=== PATIENT | female | born 1965 | race Caucasian/White ===

== ENCOUNTER 2025-04-22 11:35 | Emergency (ER) | payer OTHER, BC ==
--- OUTSIDE RECORDS SUMMARY | 2025-04-22 11:38 | XMS REPORT | Continuity of Care Document ---
Author Name Unknown Address [address] [place] [address] [place] [id number] Care Team Providers Care Director Digital Name Role Phone JUANIS PIERCE Attending Clinician Unavailable Encounters Start Date/Time End Date/Time Encounter Type Admission Type Attending Clinicians Care Facility Care Department Encounter ID Source 2024-03-18 14:42:00 2024-03-18 14:42:00 Outpatient JUANIS JONES [facility] [id number] [facility]
[2025-04-22 12:23] LABS: Absolute Lymphocytes (CBC) 1.4 K/uL (0.7-4.9); Hematocrit 40.8 % (36.0-45.0); Hemoglobin 14.1 g/dL (12.0-15.0); MCH 31.5 pg (27.0-35.0); MCHC 34.6 g/dL (32.0-36.0); MCV 90.9 fL (80-100); MPV 7.4 fL (7.6-11.3); Nucleated RBC Absolute Count 0.0 (0-0); Nucleated Red Blood Cells % 0.0 % (0-0); RBC Red Blood Cell Count 4.48 M/uL (3.86-4.86); White Blood Count 5.40 thou/uL (4.3-10.9)
[2025-04-22] MEDS ORDERED: NA CHLORIDE 0.9% 1,000 ML ONE (12:29)
[2025-04-22] MEDS ORDERED: KETOROLAC 30 MG/ML INJ ONE (12:29)
[2025-04-22] MEDS ORDERED: ONDANSETRON 4 MG/2 ML VIAL ONE (12:29)
[2025-04-22 12:40] LABS: ALT/SGPT 27.0 U/L (13-56); AST/SGOT 16.0 U/L (15-37); Albumin 3.6 g/dL (3.4-5.0); Albumin/Globulin Ratio 0.9 (1.1-1.8); Alkaline Phosphatase 81.0 U/L (45-117); Anion Gap 8.3 mEq/L (5.0-15.0); BUN Blood Urea Nitrogen 18.0 mg/dL (7-18); Globulin 3.8 g/dL (2.3-3.5); Glucose Level 107.0 mg/dL (74-106); Lipase 60.0 U/L (13-75); Potassium 3.3 mEq/L (3.5-5.1)
--- NOTE | 2025-04-22 13:28 | RAD REPORT ---
EXAMINATION: Stone Protocol CLINICAL INDICATION: Abdominal pain TECHNIQUE: CT abdomen and pelvis was performed, without IV contrast, as per department protocol. Oral contrast not given. Axial, sagittal and coronal reconstructions were obtained. One or more of the following dose reduction techniques were used: Automated exposure control, adjustment of the mA and k V according to the patient size, and iterative reconstruction. Unless otherwise specified, incidental findings do not require dedicated imaging follow-up. COMPARISON: 2021 FINDINGS: The lack of intravenous and oral contrast limits the sensitivity of this exam for evaluation of solid visceral organs, vascular structures, and bowel Multiple right renal calculi. Moderate right hydronephrosis. Right ureter dilated. 7 mm calculus dist al right ureter. Tiny nonobstructing left renal calculus. Liver, spleen, pancreas and adrenals grossly normal No evidence of diverticulitis. Normal appendix. Small umbilical hernia. 5 cm left ovarian mass Hounsfield unit 37 unchanged from prior exam Moderate amount of stool within the colon IMPRESSION: 7 mm calculus distal right ureter results in moderate right hydronephrosis 5 mm left ovarian mass stable from 2021 likely benign. Nonemergent pelvic ultrasound may be helpful f or further evaluation.
--- NOTE | 2025-04-22 14:19 | ER ---
Nurse's Notes [facility] Name: Rocío Sandy Age: 60 yrs Sex: Female : 1965 Arrival Date: 04/22/2025 Time: 11:35 Bed 20 Private MD: Diagnosis: Calculus of kidney with calculus of ureter Presentation: 04/22 11:58 Chief complaint: Patient states: right flank pain that radiates to RLQ with n/v, me1 started last night. Pain is 8/10 "sharp and throbbing". Coronavirus screen: Vaccine status: Patient reports being unvaccinated. Ebola Screen: No symptoms or risks identified at this time. Initial Sepsis Screen: Does the patient meet any 2 criteria? No. Patient's initial sepsis screen is negative. Does the patient have a suspected source of infection? No. Patient's initial sepsis screen is negative. Risk Assessment: Do you want to hurt yourself or someone else? Patient reports no desire to harm self or others. Onset of symptoms was April 21, 2025 at 19:30. 11:58 Method Of Arrival: Ambulatory mi1 11:58 Acuity: JUANITO 3 me1 Historical: - Allergies: 12:00 PENICILLINS; me1 - PMHx: 12:00 Hypertensive disorder; kidney stones; me1 - PSHx: 12:00 section; me1 - Immunization history:: Adult Immunizations. - Infectious Disease History:: Denies. - Social history:: Smoking status: Patient denies any tobacco usage or history of. Screenin:08 [facility] ED Fall Risk Assessment (Adult) History of falling in the last 3 months, rg5 including since admission No falls in past 3 months (0 pts) Confusion or Disorientation No (0 pts) Intoxicated or Sedated No (0 pts) Impaired Gait No (0 pts) Mobility Assist Device Used No (0 pt) Altered Elimination No (0 pt) Score/Fall Risk Level 0 - 2 = Low Risk Oriented to surroundings, Maintained a safe environment. Abuse screen: Denies threats or abuse. Nutritional screening: No deficits noted. Tuberculosis screening: No symptoms or risk factors identified. Assessment: 13:08 General: Appears uncomfortable, Behavior is calm, cooperative, appropriate for age. rg5 Pain: Complains of pain in abdomen Pain currently is 8 out of 10 on a pain scale. Quality of pain is described as aching. Neuro: Level of Consciousness is awake, alert, obeys commands, Oriented to person, place, time. Cardiovascular: Patient's skin is warm and dry. Respiratory: Airway is patent Respiratory effort is even, unlabored. GI: Bowel sounds present in left lower quadrant Abd is soft. : No signs and/or symptoms were reported regarding the genitourinary system. EENT: No signs and/or symptoms were reported regarding the EENT system. Derm: Skin is intact, Skin is dry, Skin is normal. Musculoskeletal: Circulation, motion, and sensation intact. Range of motion: intact in all extremities. 14:00 Reassessment: Patient and/or family updated on plan of care and expected duration. Pain rg5 level reassessed. Patient is alert, oriented x 3, equal unlabored respirations, skin warm/dry/pink. Patient states symptoms have improved. Vital Signs: 11:58 BP 170 / 91; Pulse 75; Resp 18; Temp 98; Pulse Ox 99% ; Weight 83.91 kg; Height 5 ft. 4 me1 in. ; Pain 8/10; 13:07 BP 160 / 99; Pulse 77; Resp 18; Pulse Ox 97% ; rg5 14:00 BP 157 / 96; Pulse 85; Resp 18; Pulse Ox 96% ; rg5 11:58 Body Mass Index 31.75 (83.91 kg, 162.56 cm) me1 11:58 Pain Scale: Adult me1 ED Course: 11:51 Patient arrived in ED. cj3 11:51 Harrison Mcmillan FNP-C [facility]. dr5 11:51 Reji Patel MD is Attending Physician. dr5 11:58 Jay Fraser, YUKO is Primary Nurse. rg5 12:00 Triage completed. me1 12:00 Arm band placed on Patient placed in an exam room. me1 12:[address] In Process Unspecified. EDMS 13:08 Patient has correct armband on for positive identification. Bed in low position. Call rg5 light in reach. Side rails up X 1. Door closed. Noise minimized. Warm blanket given. 13:08 No provider procedures requiring assistance completed. Inserted saline lock: 20 gauge rg5 in left antecubital area, using aseptic technique. Blood collected. Flushed with 10 mL NS. 14:49 IV discontinued, bleeding controlled, No redness/swelling at site. Pressure dressing rg5 applied. Administered Medications: 12:55 Drug: Ondansetron IVP 4 mg IVP once; over 2 minutes Route: IVP; Site: left antecubital; rg5 13:30 Follow up: Response: No adverse reaction rg5 12:55 Drug: NS 0.9% IV 1000 ml IV at 1 bolus Per protocol; to be given as a bolus over 60 rg5 minutes Route: IV; Rate: 1 bolus; Site: right antecubital; 14:29 Follow up: IV Status: Completed infusion; IV Intake: 1000ml rg5 12:59 Drug: Ketorolac IVP 15 mg IVP once Route: IVP; Site: left antecubital; rg5 13:30 Follow up: Response: No adverse reaction rg5 14:29 Not Given (Patient Refused): morphineor iv 4 mg IVP once over 4 mins rg5 Medication: 13:08 VIS not applicable for this client. rg5 Intake: 14:29 IV: 1000ml; Total: 1000ml. rg5 Outcome: 14:19 Discharge ordered by . dr5 14:48 Discharged to home ambulatory, rg5 14:48 Condition: stable 14:48 Discharge instructions given to patient, Instructed on discharge instructions, Demonstrated understanding of instructions, Prescriptions given X 3, 14:49 Patient left the ED. rg5 Signatures: Dispatcher [employer] EDHilary Pride RN RN me1 Jay Fraser RN RN rg5 Harrison Mcmillan, PHOTOLITHOGRAPHIC STRIPPER-C PHOTOLITHOGRAPHIC STRIPPER-[facility]5 Charity Montoya 3
--- NOTE | 2025-04-22 14:19 | EDPHYS ---
Physician Documentation [facility] Name: Rocío Sandy Age: 60 yrs Sex: Female : 1965 Arrival Date: 04/22/2025 Time: 11:35 Bed 20 Private MD: JL Physician Reji Patel HPI: 04/22 12:16 This 60 yrs old Female presents to ER via Ambulatory with complaints of Flank dr5 Pain, Abdominal Pain. 12:16 The patient complains of pain in the right low back. Onset: The symptoms/episode dr5 began/occurred 1 week(s) ago. Patient is a 60-year-old female with history of hypertension and kidney stones coming in with right flank pain that is intermittent as well as occasional hematuria. Patient reports her pain is an 8 out of 10 at this time. Patient denies dysuria, chest pain, shortness of breath, abdominal pain, nausea, fever, or diarrhea.. Historical: - Allergies: 12:00 PENICILLINS; me1 - PMHx: 12:00 Hypertensive disorder; kidney stones; me1 - PSHx: 12:00 section; me1 - Immunization history:: Adult Immunizations. - Infectious Disease History:: Denies. - Social history:: Smoking status: Patient denies any tobacco usage or history of. ROS: 12:16 Constitutional: as per hpi dr5 Exam: 12:16 Constitutional: This is a well developed, well nourished patient who is awake, alert, dr5 and in no acute distress. Head/Face: Normocephalic, atraumatic. Eyes: Pupils equal round and reactive to light, extra-ocular motions intact. Lids and lashes normal. Conjunctiva and sclera are non-icteric and not injected. Cornea within normal limits. Periorbital areas with no swelling, redness, or edema. ENT: Nares patent. No nasal discharge, no septal abnormalities noted. Tympanic membranes are normal and external auditory canals are clear. Oropharynx with no redness, swelling, or masses, exudates, or evidence of obstruction, uvula midline. Mucous membranes moist. Chest/axilla: Normal chest wall appearance and motion. Nontender with no deformity. No lesions are appreciated. Cardiovascular: Regular rate and rhythm with a normal S1 and S2. Normal PMI, no JVD. No pulse deficits. Respiratory: Lungs have equal breath sounds bilaterally, clear to auscultation. No rales, rhonchi or wheezes noted. No increased work of breathing, no retractions or nasal flaring. Abdomen/GI: Soft, non-tender, non-distended Back: No spinal tenderness. No costovertebral tenderness. Full range of motion. Skin: Warm, dry with normal turgor. Normal color with no rashes, no lesions, and no evidence of cellulitis. MS/ Extremity: Pulses equal, no cyanosis. Neurovascular intact. Full, normal range of motion. Neuro: Awake and alert, GCS 15, oriented to person, place, time, and situation. Cranial nerves II-XII grossly intact. Motor strength 5/5 in all extremities. Sensory grossly intact. Cerebellar exam normal. Normal gait. Vital Signs: 11:58 BP 170 / 91; Pulse 75; Resp 18; Temp 98; Pulse Ox 99% ; Weight 83.91 kg; Height 5 ft. 4 me1 in. ; Pain 8/10; 13:07 BP 160 / 99; Pulse 77; Resp 18; Pulse Ox 97% ; rg5 14:00 BP 157 / 96; Pulse 85; Resp 18; Pulse Ox 96% ; rg5 11:58 Body Mass Index 31.75 (83.91 kg, 162.56 cm) me1 11:58 Pain Scale: Adult me1 MDM: 11:51 Medical Screening Exam initiated dr5 17:55 Differential diagnosis: nephrolithiasis, pyelonephritis, UTI. Data reviewed: vital dr5 signs, nurses notes, lab test result(s), CBC, white blood cell count, hemoglobin, hematocrit, platelets, electrolytes, sodium, potassium, chloride, serum bicarbonate, BUN, creatinine, serum glucose, radiologic studies, CT scan. Data reviewed: I have discussed the patient's presentation/case with the attending Emergency Department Physician;. Consideration of Admission/Observation Escalation of care including admission/observation considered. Escalation considered the patient found to have fever and uncontrolled pain. I considered the following discharge prescriptions or medication management in the emergency department I discussed and recommended Over The Counter medications, Medications were administered in the Emergency Department. See MAR. Independent interpretation of the following test(s) in the Emergency Department CT Scan: My interpretation is Independent interpretation of CT scan revealed kidney stones in kidney as well as in right distal ureter. Historians other than the Patient: Spouse/Significant Other: . Care significantly affected by the following chronic conditions: Hypertension. Care significantly affected by the following Social Determinants of Health: Poor access to healthcare and/or lack of insurance, Poor access to transportation, Problems related to employment. Counseling: I had a detailed discussion with the patient and/or guardian regarding the historical points, exam findings, and any diagnostic results supporting the discharge/admit diagnosis, the presence of at least one elevated blood pressure reading (>120/80) during this emergency department visit, lab results, radiology results, the need for outpatient follow up, for definitive care, a family practitioner, a urologist, to return to the emergency department if symptoms worsen or persist or if there are any questions or concerns that arise at home. Medication response: Response to treatment: the patient's symptoms have markedly improved after treatment. Special discussion: I discussed with the patient/guardian in detail that at this point there is no indication for admission to the hospital. It is understood, however, that if the symptoms persist or worsen the patient needs to return immediately for re-evaluation. Based on the history and exam findings, there is no indication for further emergent testing or inpatient evaluation. I discussed with the patient/guardian the need to see the urologist for further evaluation of the symptoms. ED course: CT scan and lab work printed and given to patient. Recommended Flomax and Toradol to help passage of kidney stone. Will cover with antibiotics. Recommend patient follow-up with urologist if pain continues. Explained magnesium may help prevent kidneys in the future and low oxalate diet. All questions answered. Strict ER precaution given. 04/22 11:52 Order name: CBC with Diff; Complete Time: 12:36 dr5 04/22 11:52 Order name: CMP; Complete Time: 12:48 dr5 04/22 11:52 Order name: Lipase; Complete Time: 12:48 dr5 04/22 12:02 Order name: UA Rfx Kalyan Cult if indicated dr5 04/22 12:02 Order name: Stone Protocol CT; Complete Time: 13:37 dr5 04/22 11:52 Order name: IV Saline Lock; Complete Time: 12:59 dr5 04/22 11:52 Order name: Labs collected and sent; Complete Time: 12:59 dr5 Administered Medications: 12:55 Drug: Ondansetron IVP 4 mg IVP once; over 2 minutes Route: IVP; Site: left antecubital; rg5 13:30 Follow up: Response: No adverse reaction rg5 12:55 Drug: NS 0.9% IV 1000 ml IV at 1 bolus Per protocol; to be given as a bolus over 60 rg5 minutes Route: IV; Rate: 1 bolus; Site: right antecubital; 14:29 Follow up: IV Status: Completed infusion; IV Intake: 1000ml rg5 12:59 Drug: Ketorolac IVP 15 mg IVP once Route: IVP; Site: left antecubital; rg5 13:30 Follow up: Response: No adverse reaction rg5 14:29 Not Given (Patient Refused): morphineor iv 4 mg IVP once over 4 mins rg5 Disposition Summary: 04/22/25 14:19 Discharge Ordered Notes: Location: Home dr5 Condition: Stable dr5 Diagnosis - Calculus of kidney with calculus of ureter dr5 Followup: dr5 - With: Emergency Department - When: As needed - Reason: Worsening of condition Followup: dr5 - With: Private Physician - When: 1 - 2 days - Reason: Recheck today's complaints, Continuance of care, Re-evaluation by your physician Discharge Instructions: - Discharge Summary Sheet dr5 - Kidney Stones dr5 Forms: - Medication Reconciliation Form dr5 - Antibiotic Education dr5 - Patient Portal Instructions dr5 - Leadership Thank You Letter dr5 Prescriptions: - ketorolac 10 mg Oral tablet - take 1 tablet ORAL route every 6 hours as needed for pain; maximum total dr5 duration of 5 days from all oral, intranasal, or parenteral formulations; 30 tablet; Refills: 0, Product Selection Permitted - Flomax 0.4 mg Oral capsule - take 1 capsule ORAL route daily for 30 days; 30 capsule; Refills: 0, Product dr5 Selection Permitted - Tramadol 50 mg Oral Tablet - take 1 tablet ORAL route every 8 hours as needed; 12 tablet; Refills: 0, dr5 Product Selection Permitted Signatures: Dispatcher [employer] EDMS Hilary Chacon RN RN me1 Jay Fraser RN RN rg5 Harrison Mcmillan FNP-C FNP-Cdr5 Corrections: (The following items were deleted from the chart) 11:53 11:53 CBC+H.LAB.BRZ ordered. EDMS EDMS 11:53 11:53 COMPREHENSIVE METABOLIC PANEL+C.LAB.BRZ ordered. EDMS EDMS 11:53 11:53 LIPASE+C.LAB.BRZ ordered. EDMS EDMS 12:02 12:02 Stone Protocol+CT.RAD.BRZ ordered. EDMS EDMS
[2025-04-22 14:58] LABS: Sqamous Epithelial <5 /HPF (None Seen); Urine Crystals Unidentified Few /HPF (None Seen); Urine Culture Reflex Order NOT NEEDED; Urine Microscopic Reflex YN ORDER UMIC; Urine Yeast (Budding) Trace /HPF (None Seen)
[2025-04-22 18:54] VITALS: TEMP 98
[2025-04-22 18:56] VITALS: BP 157/96; O2SAT 96
== END 2025-04-22 14:49 | disposition home or self-care (01) ==
LOC: ER 11:35
DX: N20.2 Calculus of kidney with calculus of ureter (principal); Z87.442 Personal history of urinary calculi
CPT/HCPCS: 96361; 85025; 81001; 36415; 83690; 80053; 76377; 74176; 96375; 96374; 99284; J1885; J2405; J7030